=== PATIENT | female | born 1985 | race Caucasian/White ===

== ENCOUNTER 2019-03-17 17:10 | Inpatient (IN) | payer MEDICAID ==
[2019-03-17] MEDS: LACTATED RINGER'S 1,000 ML IV ×2 (18:11→19:05)
[2019-03-17 18:19] LABS: ADD MAN DIFF? NO
[2019-03-17 18:28] LABS: WHITE BLOOD COUNT 23.7 10^3/ul (4.8-10.8)
[2019-03-17 18:28] LABS: ABNORMAL IP MESSAGE 1; BASOPHIL # 0.1 10^3/ul (0.0-0.1); BASOPHILS % 0.2 % (0.0-2.0); EOSINOPHILS # 0.1 10^3/ul (0.0-0.5); EOSINOPHILS % 0.3 % (0.0-7.0); HEMATOCRIT 31.9 % (37.0-47.0); HEMOGLOBIN 10.7 g/dl (12.0-16.0); LYMPHOCYTES # 1.5 10^3/ul (0.8-2.9); LYMPHOCYTES % 6.5 % (15.0-51.0); MEAN CORPUSCULAR HEMOGLOBIN 30.8 pg (29.0-33.0); MEAN CORPUSCULAR HGB CONC 33.5 g/dl (32.0-37.0); MEAN CORPUSCULAR VOLUME 91.9 fl (82.0-101.0); MEAN PLATELET VOLUME 10.2 fl (7.4-10.4); MONOCYTE # 1.6 10^3/ul (0.3-0.9); MONOCYTES % 6.8 % (0.0-11.0); NEUTROPHIL # 20.2 10^3/ul (1.6-7.5); NEUTROPHILS % 85.4 % (39.0-77.0); PLATELET COUNT 287 10^3/UL (140-415); RED BLOOD COUNT 3.47 10^6/ul (4.20-5.40); RED CELL DISTRIBUTION WIDTH 12.5 % (11.5-14.5)
[2019-03-17 18:30] LABS: POSITIVE DIFF @See below
[2019-03-17 18:45] LABS: ADD UMIC YES; UR ASCORBIC ACID NEGATIVE (NEGATIVE); UR BACTERIA MANY /HPF (NONE SEEN); UR BILIRUBIN (Dip) NEGATIVE (NEGATIVE); UR BLOOD (Dip) 2+ mg/dL (NEGATIVE); UR CLARITY TURBID (CLEAR); UR COLOR YELLOW (YELLOW); UR GLUCOSE (Dip) NEGATIVE (NEGATIVE); UR KETONES (Dip) NEGATIVE (NEGATIVE); UR LEUKOCYTE ESTERASE (Dip) 3+ Leu/ul (NEGATIVE); UR NITRITE (Dip) NEGATIVE (NEGATIVE); UR RBC 18 /HPF (0-5); UR SPECIFIC GRAVITY (Dip) 1.003 (1.003-1.030); UR SQUAMOUS EPITHELIAL CELL FEW /HPF (FEW); UR TOTAL PROTEIN (Dip) 1+ mg/dl (NEGATIVE); UR UROBILINOGEN (Dip) NEGATIVE (NEGATIVE); UR WBC > 182 /HPF (0-5)
[2019-03-17 18:46] LABS: RUPTURE FETAL MEMBRANES NEGATIVE (NEGATIVE)
[2019-03-17 18:48] LABS: PARTIAL THROMBOPLASTIN TIME 32.3 Sec (23.0-35.0)
[2019-03-17] MEDS ORDERED: LACTATED RINGER'S 1,000 ML IV (18:57)
[2019-03-17] MEDS ORDERED: CARBOPROST 250 MCG INJ IM ×2 (19:00→23:30)
[2019-03-17] MEDS ORDERED: METHYLERGONOVINE 0.2 MG INJ IM ×2 (19:00→23:30)
[2019-03-17] MEDS ORDERED: OXYTOCIN 30 UNITS/LR 500 ML IV ×2 (19:00→23:30)
[2019-03-17] MEDS ORDERED: MISOPROSTOL 200 MCG TAB PR ×2 (19:00→23:30)
[2019-03-17] MEDS ORDERED: morphine SULFATE/PF (10 MG/10 ML) INJ (19:06)
[2019-03-17] MEDS ORDERED: PHENYLephrine (100 MCG/ML) 10ML SYG (19:06)
[2019-03-17 19:16] LABS: AMPHETAMINE/METHAMPHETAMINE Negative (NEGATIVE); BARBITURATES Negative (NEGATIVE); BENZODIAZEPINES Negative (NEGATIVE); CANNABINOIDS Negative (NEGATIVE); COCAINE Negative (NEGATIVE); OPIATES Negative (NEGATIVE)
[2019-03-17] MEDS ORDERED: CITRIC ACID/NA CITRATE 30 ML CUP (19:16)
[2019-03-17] MEDS ORDERED: AMPICILLIN 2 GM/NS (PMX) 100 ML (19:18)
[2019-03-17] MEDS ORDERED: GENTAMICIN 120 MG/NS (PMX) 100 ML IVPB (19:18)
[2019-03-17] MEDS ORDERED: CLINDAMYCIN 900 MG (PMX) 50 ML IVPB (19:18)
[2019-03-17 19:25] LABS: INR 1.04; PROTIME 13.7 Sec (11.9-14.9); PT RATIO 1.1
[2019-03-17] MEDS ORDERED: KETOROLAC 30 MG INJ IV (19:30)
[2019-03-17] MEDS ORDERED: FENTAnyl 50 MCG/ML VIAL IV ×3 (19:30)
[2019-03-17] MEDS ORDERED: ALBUTEROL 0.083% (NEB) 2.5 MG/3 ML AMP HHN (19:30)
[2019-03-17] MEDS ORDERED: HYDROmorphONE 0.5 MG/0.5 ML SYG IV (19:30)
[2019-03-17] MEDS ORDERED: NALOXONE (0.4 MG/ML) INJ IV (19:30)
[2019-03-17] MEDS ORDERED: DIPHENHYDRAMINE 50 MG INJ IV ×2 (19:30)
[2019-03-17] MEDS: GENTAMICIN 120 MG/NS (PMX) 100 ML IVPB (19:30)
[2019-03-17] MEDS ORDERED: HYDROmorphONE 1 MG/5 ML IV SYRINGE IV ×3 (19:30)
[2019-03-17] MEDS ORDERED: ONDANSETRON 4 MG INJ IV ×2 (19:30)
[2019-03-17] MEDS ORDERED: METOCLOPRAMIDE 10 MG INJ IV (19:30)
[2019-03-17] MEDS ORDERED: ONDANSETRON 4 MG INJ (19:38)
[2019-03-17] MEDS ORDERED: FENTAnyl 50 MCG/ML VIAL ×3 (19:47→20:04)
[2019-03-17 20:03] LABS: HEPATITIS B SURFACE ANTIGEN NEGATIVE (NEGATIVE)
[2019-03-17] MEDS ORDERED: PROPOFOL 20 ML (20:31)
[2019-03-17] MEDS ORDERED: SUCCINYLCHOLINE CHLORIDE 100 MG/5 ML SYG IV (20:31)
[2019-03-17] MEDS ORDERED: SUGAMMADEX SODIUM 200 MG/2 ML VIAL IV (20:31)
[2019-03-17] MEDS ORDERED: ROCURONIUM 50 MG INJ (20:31)
[2019-03-17] MEDS ORDERED: METOCLOPRAMIDE 10 MG INJ (20:39)
[2019-03-17] MEDS ORDERED: FAMOTIDINE 20 MG INJ (20:39)
[2019-03-17] MEDS: OXYTOCIN 30 UNITS/LR 500 ML IV (21:17)
[2019-03-17] MEDS: CLINDAMYCIN 900 MG (PMX) 50 ML IVPB (21:59)
[2019-03-17] MEDS: AMPICILLIN 2 GM/NS (PMX) 100 ML IV (22:00)
[2019-03-17] MEDS: KETOROLAC 30 MG INJ IV (22:01)
[2019-03-17] MEDS: HYDROmorphONE 0.5 MG/0.5 ML SYG IV (23:04)
[2019-03-17] MEDS: DEXTROSE 5%-LR 1,000 ML IV (23:30)
[2019-03-17] MEDS ORDERED: HYDROCODONE/APAP (5/325) TAB PO (23:30)
[2019-03-17] MEDS ORDERED: METHYLERGONOVINE 0.2 MG TAB PO (23:30)
[2019-03-18] MEDS: LANOLIN HPA 1 PKT TOP (00:45)
[2019-03-18] MEDS: METOCLOPRAMIDE 10 MG INJ IV ×5 (00:58→23:45)
[2019-03-18] MEDS: OXYTOCIN 30 UNITS/LR 500 ML IV (01:19)
[2019-03-18] MEDS: PIPER-TAZO 3.375 GM IV (PMX) 100 ML IVPB ×3 (02:29→17:34)
[2019-03-18 05:16] LABS: WHITE BLOOD COUNT 20.4 10^3/ul (4.8-10.8)
[2019-03-18 05:16] LABS: HEMATOCRIT 28.7 % (37.0-47.0); HEMOGLOBIN 9.5 g/dl (12.0-16.0); MEAN CORPUSCULAR HEMOGLOBIN 31.1 pg (29.0-33.0); MEAN CORPUSCULAR HGB CONC 33.1 g/dl (32.0-37.0); MEAN CORPUSCULAR VOLUME 94.1 fl (82.0-101.0); MEAN PLATELET VOLUME 10.1 fl (7.4-10.4); PLATELET COUNT 251 10^3/UL (140-415); RED BLOOD COUNT 3.05 10^6/ul (4.20-5.40); RED CELL DISTRIBUTION WIDTH 12.6 % (11.5-14.5)
[2019-03-18] MEDS: IBUPROFEN 800 MG TAB PO ×3 (06:00→21:37)
[2019-03-18 06:08] LABS: ADD MAN DIFF? YES; POSITIVE DIFF @See below
[2019-03-18] MEDS: DEXTROSE 5%-LR 1,000 ML IV (07:30)
[2019-03-18] MEDS: LACTATED RINGER'S 1,000 ML IV ×3 (08:00→23:40)
[2019-03-18 09:32] LABS: BAND NEUTROPHILS #M 1.8 10^3/ul (0.0-0.6); BAND NEUTROPHILS % (M) 9 % (0-4); EOSINOPHILS % (M) 1 % (0-7); GIANT THROMBO% (M) 1 % (0-0); LYMPHOCYTES #M 2.6 10^3/ul (0.8-2.9); LYMPHOCYTES % (M) 13 % (15-51); MONOCYTE #M 1.6 10^3/ul (0.3-0.9); MONOCYTES % (M) 8 % (0-11); REACTIVE LYMPHOCYTES #M 0.4 10^3/ul (0.0-0.0); REACTIVE LYMPHOCYTES% (M) 2 % (0-0); SEGMENTED NEUTROPHILS (M) % 67 % (39-77); SMUDGE%M 3 % (0-0)
[2019-03-18] MEDS: CELECOXIB 200 MG CAP PO ×2 (10:50→21:37)
[2019-03-18] MEDS ORDERED: DIPHTH/TET/ACEL PERTUSS (ADULT) 0.5 ML VIAL IM* (11:00)
[2019-03-18] MEDS ORDERED: HYDROCODONE/APAP (5/325) TAB NGT (11:00)
[2019-03-18] MEDS: SENNA/DOCUSATE NA (8.6MG/50MG) TAB PO ×2 (11:56→21:37)
[2019-03-18] MEDS ORDERED: HYDROCODONE/APAP (5/325) TAB GTB (14:00)
[2019-03-18] MEDS: KETOROLAC 30 MG INJ IV (15:54)
[2019-03-18 19:59] LABS: RAPID PLASMA REAGIN NONREACTIVE (NR)
[2019-03-18] MEDS: FERROUS SULFATE (EC) 325 MG TAB PO (21:37)
[2019-03-19] MEDS: PIPER-TAZO 3.375 GM IV (PMX) 100 ML IVPB ×3 (02:20→18:06)
[2019-03-19 04:59] LABS: ADD MAN DIFF? NO
[2019-03-19 05:02] LABS: BASOPHIL # 0.1 10^3/ul (0.0-0.1); BASOPHILS % 0.3 % (0.0-2.0); EOSINOPHILS # 0.4 10^3/ul (0.0-0.5); EOSINOPHILS % 2.6 % (0.0-7.0); HEMATOCRIT 26.4 % (37.0-47.0); HEMOGLOBIN 8.7 g/dl (12.0-16.0); LYMPHOCYTES # 1.8 10^3/ul (0.8-2.9); LYMPHOCYTES % 11.1 % (15.0-51.0); MEAN CORPUSCULAR HEMOGLOBIN 31.8 pg (29.0-33.0); MEAN CORPUSCULAR VOLUME 96.4 fl (82.0-101.0); MEAN PLATELET VOLUME 10.2 fl (7.4-10.4); MONOCYTES % 6.3 % (0.0-11.0); NEUTROPHIL # 12.6 10^3/ul (1.6-7.5); NEUTROPHILS % 78.9 % (39.0-77.0); PLATELET COUNT 238 10^3/UL (140-415); RED BLOOD COUNT 2.74 10^6/ul (4.20-5.40); RED CELL DISTRIBUTION WIDTH 12.7 % (11.5-14.5)
[2019-03-19] MEDS: IBUPROFEN 800 MG TAB PO ×3 (05:54→21:32)
[2019-03-19] MEDS: HYDROCODONE/APAP (5/325) TAB PO (06:46)
[2019-03-19] MEDS: LACTATED RINGER'S 1,000 ML IV ×2 (08:09→22:02)
[2019-03-19] MEDS: FERROUS SULFATE (EC) 325 MG TAB PO ×2 (08:38→21:32)
[2019-03-19] MEDS: SENNA/DOCUSATE NA (8.6MG/50MG) TAB PO ×2 (08:38→21:32)
[2019-03-19] MEDS: CELECOXIB 200 MG CAP PO ×2 (08:38→21:32)
[2019-03-20] MEDS: PIPER-TAZO 3.375 GM IV (PMX) 100 ML IVPB ×2 (02:42→09:40)
[2019-03-20] MEDS: IBUPROFEN 800 MG TAB PO ×2 (05:42→12:51)
[2019-03-20] MEDS: BISACODYL 10 MG SUPP PR (09:40)
[2019-03-20] MEDS: CELECOXIB 200 MG CAP PO (09:40)
[2019-03-20] MEDS: SENNA/DOCUSATE NA (8.6MG/50MG) TAB PO (09:40)
[2019-03-20] MEDS: FERROUS SULFATE (EC) 325 MG TAB PO (09:41)
[2019-03-20] MEDS: DIPHTH/TET/ACEL PERTUSS (ADULT) 0.5 ML VIAL IM* (09:41)
[2019-03-20] MEDS: MEASLES,MUMPS,RUBELLA VACCINE INJ SC* (09:42)
[2019-03-20 11:19] LABS: ADD MAN DIFF? NO
[2019-03-20 11:25] LABS: WHITE BLOOD COUNT 9.6 10^3/ul (4.8-10.8)
[2019-03-20 11:25] LABS: BASOPHILS % 0.2 % (0.0-2.0); EOSINOPHILS # 0.3 10^3/ul (0.0-0.5); EOSINOPHILS % 3.5 % (0.0-7.0); HEMATOCRIT 29.3 % (37.0-47.0); HEMOGLOBIN 9.5 g/dl (12.0-16.0); LYMPHOCYTES # 1.6 10^3/ul (0.8-2.9); LYMPHOCYTES % 16.8 % (15.0-51.0); MEAN CORPUSCULAR HEMOGLOBIN 31.5 pg (29.0-33.0); MEAN CORPUSCULAR HGB CONC 32.4 g/dl (32.0-37.0); MEAN PLATELET VOLUME 10.3 fl (7.4-10.4); MONOCYTE # 0.6 10^3/ul (0.3-0.9); MONOCYTES % 5.8 % (0.0-11.0); NEUTROPHILS % 73.1 % (39.0-77.0); PLATELET COUNT 300 10^3/UL (140-415); RED BLOOD COUNT 3.02 10^6/ul (4.20-5.40); RED CELL DISTRIBUTION WIDTH 12.4 % (11.5-14.5)
== END 2019-03-20 13:40 | disposition home or self-care (01) | DRG 786 ==
LOC: OBT 17:10 → L-D 17:10 → OBT 19:04 → L-D 18:30 → MS1 23:41
PROC: 10D00Z1 Extraction of Products of Conception, Low, Open Approach (ICD-10-PCS; principal; 2019-03-17)
DX: O76 Abnormality in fetal heart rate and rhythm complicating labor and delivery (principal); O41.1230 Chorioamnionitis, third trimester, not applicable or unspecified; Z3A.25 25 weeks gestation of pregnancy; Z37.0 Single live birth
CPT/HCPCS: 76815; 76817; 80307; 81001; 84112; 85025; 85610; 85730; 86592; 86850; 86900; 86901; 87070; 87340; 88307; 90715; 99464